=== PATIENT | female | born 1980 | race Caucasian/White ===

== ENCOUNTER 2016-11-04 07:41 | Inpatient (IN) | payer BC ==
[2016-11-04] MEDS ORDERED: Sodium Chloride 0.9% 10 ML Syringe FLUSH PRN (08:29)
[2016-11-04] MEDS ORDERED: Sodium Chloride 0.9% 2.5 ML Syringe FLUSH PRN (08:29)
[2016-11-04] MEDS ORDERED: Citric Acid/Sodium Citrate Solution 30 ML Cup PO SCH (08:30)
[2016-11-04] MEDS ORDERED: ceFAZolin 2 GM in Premix Bag 1 BAG IV ONE (08:34)
[2016-11-04] MEDS: Lactated Ringers 1,000 ML IV SCH ×2 (08:45→09:48)
[2016-11-04] MEDS ORDERED: Morphine PF 10 MG/10 ML SDV ONE (09:07)
[2016-11-04] MEDS ORDERED: Oxytocin/Lactated Ringers 30 UNIT/500 ML BAG ONE (09:33)
--- NOTE | 2016-11-04 09:42 | PCM.PREANE ---
Preanesthetic Assessment - Anesthesia/Transfusion/Family Hx Anesthesia History: Prior Anesthesia Without Reaction Family History of Anesthesia Reaction: No Transfusion History: No Prior Transfusion(s) - Review of Systems General: No Symptoms Pulmonary: No Symptoms Cardiovascular: No Symptoms Gastrointestinal: No symptoms Neurological: No Symptoms Other: Reports: None - Physical Assessment NPO Status Date: 11/03/16 Height: 1.68 m Weight: 97.522 kg ASA Class: 2 Mental Status: Alert & Oriented x3 Airway Class: Mallampati = 2 Dentition: Reports: Normal Dentition ROM/Head Extension: Full Lungs: Clear to auscultation, Normal respiratory effort Cardiovascular: Regular Rate, Regular Rhythm - Lab Values: Laboratory Last Values WBC 10.84 K/uL (4.0-11.0) 11/04/16 08:43 RBC 3.92 M/uL (4.30-5.90) L 11/04/16 08:43 Hgb 12.0 g/dL (12.0-16.0) 11/04/16 08:43 Hct 34.9 % (36.0-46.0) L 11/04/16 08:43 MCV 89.0 fL (80.0-98.0) 11/04/16 08:43 MCH 30.6 pg (27.0-32.0) 11/04/16 08:43 MCHC 34.4 g/dL (31.0-37.0) 11/04/16 08:43 RDW Std Deviation 43.5 fl (28.0-62.0) 11/04/16 08:43 RDW Coeff of Ebonie 14 % (11.0-15.0) 11/04/16 08:43 Plt Count 185 K/uL (150-400) 11/04/16 08:43 MPV 10.70 fL (7.40-12.00) 11/04/16 08:43 Nucleated RBC % 0.0 /100WBC 11/04/16 08:43 Nucleated RBCs # 0 K/uL 11/04/16 08:43 Membrane Rupture NEGATIVE 11/04/16 07:55 - Allergies Allergies/Adverse Reactions: Allergies Allergy/AdvReac Type Severity Reaction Status Date / Time avocado Allergy lips swell Verified 10/29/16 13:20 peach Allergy lips swell Verified 10/29/16 13:20 - Blood Blood Available: Yes - Anesthesia Plan Pre-Op Medication Ordered: Antacids - Acknowledgements Anesthesia Type Planned: Spinal Pt an Appropriate Candidate for the Planned Anesthesia: Yes Alternatives and Risks of Anesthesia Discussed w Pt/Guardian: Yes Pt/Guardian Understands and Agrees with Anesthesia Plan: Yes Additional Comments: C/S for macrosomia (estimated 10#) PreAnesthesia Questionnaire HEENT History: Reports: Other (See Below) Other HEENT History: wears glasses/contacts Gastrointestinal History: Reports: GERD SMALL [employer]ER History: Reports: - Past Surgical History Head Surgeries/Procedures: Reports: None HEENT Surgical History: Reports: Oral Surgery Other HEENT Surgeries/Procedures: wisdom teeth extraction Other GI Surgeries/Procedures: endoscopy - SUBSTANCE USE Smoking Status *Q: Never Smoker Recreational Drug Use History: No - HOME MEDS Home Medications: Home Meds Omeprazole Magnesium [Prilosec Otc] 1 tab PO DAILY 10/29/16 [History] Vit W-Ca,Fe,FA(<1 mg) [ Vitamins] 1 tab PO DAILY 10/29/16 [ History] - CURRENT (IN HOUSE) MEDS Current Meds: Current Medications Citric Acid/Sodium Citrate (Bicitra Solution) 30 ml PO .ONCE [facility] Lactated Ringer's (Ringers, Lactated) 1,000 mls @ 500 mls/hr IV .BOLUS [facility] Last Admin: 11/04/16 08:45 Dose: 999 mls/hr Sodium Chloride (Saline Flush) 10 ml FLUSH ASDIRECTED PRN PRN Reason: Keep Vein Open Sodium Chloride (Saline Flush) 2.5 ml FLUSH ASDIRECTED PRN PRN Reason: Keep Vein Open Discontinued Medications Cefazolin Sodium/Dextrose 2 gm (/ Premix) 50 mls @ 100 mls/hr IV ONETIME ONE Stop: 11/04/16 09:03 Oxytocin/Lactated Ringer's (Pitocin In Lr 30 Units/500 Ml) Confirm Administered Dose 30 unit in 500 mls @ as directed .ROUTE .STK-MED ONE Stop: 11/04/16 09:34 Morphine Sulfate (Duramorph Pf) Confirm Administered Dose 10 mg .ROUTE .STK-MED ONE Stop: 11/04/16 09:08
[2016-11-04] MEDS ORDERED: Acetaminophen/oxyCODONE 325-5 MG Tab PO PRN ×2 (10:25→10:51)
[2016-11-04] MEDS ORDERED: fentaNYL 100 MCG/2 ML SDV IVPUSH PRN (10:25)
[2016-11-04] MEDS ORDERED: Nalbuphine 10 MG/1 ML Vial IVPUSH PRN (10:25)
[2016-11-04] MEDS ORDERED: Octyl 2-Cyanoacrylate 1 Tube ONE (10:29)
[2016-11-04] MEDS ORDERED: ePHEDrine 50 MG/ML SDV ONE (10:34)
[2016-11-04] MEDS ORDERED: diphenhydrAMINE 50 MG/ML SDV IVPUSH PRN (10:51)
[2016-11-04] MEDS ORDERED: Simethicone 80 MG Tab.Chew PO PRN (10:51)
[2016-11-04] MEDS ORDERED: Ondansetron 4 MG/2 ML SDV IV PRN (10:51)
[2016-11-04] MEDS ORDERED: Bisacodyl 10 MG Supp RECTAL PRN (10:51)
[2016-11-04] MEDS ORDERED: Lanolin 100% Cream 7 GM Tube TOP PRN (10:51)
[2016-11-04] MEDS ORDERED: Aluminum Hydroxide/Magnesium Hydroxide/Simethicone Susp 30 ML Cup PO PRN (10:51)
[2016-11-04] MEDS ORDERED: Lactated Ringers 1,000 ML IV SCH (11:00)
--- NOTE | 2016-11-04 11:07 | PCM.POSTAN ---
POST ANESTHESIA ASSESSMENT - MENTAL STATUS Mental Status: alert, oriented - RESPIRATORY Respiratory Status: respiratory rate WNL, airway patent, O2 saturation stable - CARDIOVASCULAR CV Status: pulse rate WNL, blood pressure stable - GASTROINTESTINAL GI Status: no symptoms - PAIN Pain Score: 0 - POST OP HYDRATION Hydration Status: adequate & stable
--- NOTE | 2016-11-04 11:07 | PCM.OPNOTE ---
- General Post-Op/Procedure Note Date of Surgery/Procedure: 11/04/16 Operative Procedure(s): Primary LTCS Findings: Term male APGARs 8, 9 weight 4270gm. Delivery intact placenta with 3V cord. Normal appearing pelvis. Pre Op Diagnosis: 39 week IUP. Macrosomia Post-Op Diagnosis: same Anesthesia Technique: Spinal Primary Surgeon: Ayaka Leon Fluid Replacement, Intraop: 1,600 EBL in mLs: 600 Condition: Good Free Text/Narrative:: Dictation [id number]
[2016-11-04] MEDS: Ketorolac 30 MG/ML SDV IVPUSH SCH ×3 (11:19→23:14)
--- NOTE | 2016-11-04 14:49 | OR ---
SURGEON: Ayaka Leon M.D. DATE OF PROCEDURE: 11/04/2016 PREOPERATIVE DIAGNOSES: 1. A 39-week intrauterine . 2. macrosomia. 3. Spontaneous rupture of membranes. POSTOPERATIVE DIAGNOSES: 1. A 39-week intrauterine . 2. macrosomia. 3. Spontaneous rupture of membranes. PROCEDURE: Primary low transverse section. ESTIMATED BLOOD LOSS: 600 mL. ANESTHESIA: Spinal. FLUIDS: 1500 mL crystalloid. COMPLICATIONS: None. FINDINGS: Term male, score 8 at 1 minute, 9 at 5 minute. Weight of 4270 g. Intact placenta, 3-vessel cord. Normal appearing pelvis. DISPOSITION: The patient to PACU and to nursery, stable. PROCEDURE IN DETAIL: Silvina is a 36-year-old, G3, P2-0-0-2, at 39 weeks' gestational age, who presents today for originally had been for scheduled elective due to suspected macrosomia. However, she had leakage of fluid this morning and was found to have spontaneous rupture of membranes. Therefore, she was admitted, routine labs drawn, and IV hydration was initiated. She has elected to do a primary delivery due to the suspected macrosomia. Risks of have been discussed with her including infection, bleeding, possible trauma surrounding bowel, bladder, ureter, in case of excessive blood loss, need for blood transfusion, rare lifesaving circumstances, need for hysterectomy, risk of anesthesia, risk for thromboembolic event, and proper consent was obtained. The patient was then taken to the operating room, where she underwent spinal anesthetic. She was placed in a supine position with leftward tilt. SCDs to lower extremities. Munoz to gravity. She was prepped and draped in usual sterile fashion. Received Ancef prophylactically. Time-out was performed. Anesthesia was tested and found to be adequate. A Pfannenstiel incision was now created, carried down level of the rectus fascia, which was incised in midline, lateralized, incised sharply and bluntly. The superior aspect of fascia was tented upward, dissected sharply and bluntly from underlying muscle. In a similar aspect was performed with the inferior aspect of the fascia. Rectus muscle in midline. The peritoneum was tented upward and entered sharply, and lateralized bluntly. Uterine position and position gently palpated. The uterovesical reflection was visualized. Bladder flap was created sharply and bluntly. Bladder was mobilized away from lower uterine segment. Low transverse hysterotomy was now performed. Uterine cavity was entered with blunt end of scalpel. A small amount of clear fluid did return. The hysterotomy was now lateralized bluntly. The 's head was flexed, delivered from the pelvis. The infant's head was delivered followed by anterior shoulder, posterior made by without difficulty. The 's oropharynx and nares bulb suctioned. Cord clamped x2 and cut and handed off to awaiting nursing staff. Cord arterial, cord venous, cord blood samples obtained. The placenta was now delivered. Uterine cavity was cleared of all clot and debris. Hysterotomy was repaired using 0 Vicryl in continuous running locked fashion followed by re- imbricating layer. The areas of oozing and the lateral edges on either side were imbricated with [id number] suture. Hemostasis was thereafter evident. The posterior aspect of the uterus inspected, no defects hematoma found to be forming. The region was well irrigated, suction dried. Uterus was returned to the abdominal cavity. Colonic gutters were cleared of all clot and debris, well irrigated, suction dried. The hysterotomy was once again inspected, found to be hemostatic. Self-retaining retractor now removed. Bladder blade was placed. Hysterotomy was again inspected, found to be hemostatic. The rectus muscles were reapproximated using 0 Vicryl in an inverted mattress suture technique. Anterior aspect of the muscle, posterior aspect of fascia were closely inspected. Any areas of oozing were cauterized. The rectus fascia was reapproximated using 0 Vicryl in continuous running fashion beginning laterally on either side meeting in the midline. Subcutaneous tissues were well irrigated, suction dried. Any oozing were cauterized. Skin edges reapproximated using 3-0 Vicryl in a Tony needle and then reinforced with Dermabond. Uterus remained firm. Sponge needle counts correct x2. The patient tolerated the procedure well. She will go to PACU in stable condition and to nursery. ELTON / ANDRAE /[id number]
--- NOTE | 2016-11-04 21:04 | PCM48HPAN ---
Post Anesthesia Note - EVALUATION WITHIN 48HRS OF ANESTHETIC Vital Signs in Normal Range: Yes Patient Participated in Evaluation: Yes Respiratory Function Stable: Yes Airway Patent: Yes Cardiovascular Function Stable: Yes Hydration Status Stable: Yes Pain Control Satisfactory: Yes Nausea and Vomiting Control Satisfactory: Yes Mental Status Recovered: Yes
[2016-11-04] MEDS: Docusate Sodium 100 MG Cap PO SCH (22:12)
--- NOTE | 2016-11-05 04:59 | PCM.PNPP ---
- General Info Date of Service: 11/05/16 Functional Status: Reports: pain controlled, tolerating diet, ambulating, urinating - Review of Systems General: Denies: Fever, Weakness Cardiovascular: Denies: Chest Pain, Palpitations, Lightheadedness Gastrointestinal: Denies: Nausea, Vomiting Genitourinary: Denies: flank pain Musculoskeletal: Reports: no symptoms Psychiatric: Reports: no symptoms - General Info Date of Service: 11/05/16 - Patient Data Vital Signs - most recent: Last Vital Signs Temp 36.3 C 11/05/16 00:00 Pulse 96 11/05/16 00:00 Resp 16 11/05/16 00:00 BP 113/72 11/05/16 00:00 Pulse Ox 100 11/05/16 00:00 Weight - most recent: 97.522 kg I&O - last 24 hours: Intake & Output 11/04/16 11/04/16 11/05/16 14:59 22:59 06:59 Intake Total 4220 700 Output Total 100 350 850 Balance 4120 350 -850 Lab Results - last 24 hrs: Laboratory Results - last 24 hr 11/04/16 11/04/16 11/04/16 Range/Units 07:55 08:43 08:43 WBC 10.84 (4.0-11.0) K/uL RBC 3.92 L (4.30-5.90) M/uL Hgb 12.0 (12.0-16.0) g/dL Hct 34.9 L (36.0-46.0) % MCV 89.0 (80.0-98.0) fL MCH 30.6 (27.0-32.0) pg MCHC 34.4 (31.0-37.0) g/dL RDW Std Deviation 43.5 (28.0-62.0) fl RDW Coeff of Ebonie 14 (11.0-15.0) % Plt Count 185 (150-400) K/uL MPV 10.70 (7.40-12.00) fL Nucleated RBC % 0.0 /100WBC Nucleated RBCs # 0 K/uL Membrane Rupture NEGATIVE Blood Type A POSITIVE Antibody Screen NEGATIVE Med Orders - Current: Current Medications Al Hydroxide/Mg Hydroxide (Mag-Al Plus) 30 ml PO Q8H PRN PRN Reason: Heartburn Bisacodyl (Dulcolax) 10 mg RECTAL .ONCE PRN PRN Reason: Constipation Citric Acid/Sodium Citrate (Bicitra Solution) 30 ml PO .ONCE [facility] Last Admin: 11/04/16 09:48 Dose: 30 ml Diphenhydramine HCl (Benadryl) 25 mg IVPUSH Q6H PRN PRN Reason: Itching or Nausea Docusate Sodium (Colace) 100 mg PO BID [facility] Last Admin: 11/04/16 22:12 Dose: 100 mg Emollient Ointment (Lansinoh Hpa) 0 gm TOP ASDIRECTED PRN PRN Reason: Sore Nipples Fentanyl (Sublimaze) 50 mcg IVPUSH Q5M PRN PRN Reason: Pain (severe 7-10) Stop: 11/05/16 10:26 Lactated Ringer's (Ringers, Lactated) 1,000 mls @ 500 mls/hr IV .BOLUS [facility] Last Admin: 11/04/16 09:48 Dose: 999 mls/hr Lactated Ringer's (Ringers, Lactated) 1,000 mls @ 125 mls/hr IV ASDIRECTED [facility] Ibuprofen (Motrin) 800 mg PO Q8H PRN PRN Reason: mild pain or fever Ketorolac Tromethamine (Toradol) 30 mg IVPUSH Q6H [facility] Stop: 11/05/16 11:01 Last Admin: 11/04/16 23:14 Dose: 30 mg Nalbuphine HCl (Nubain) 5 mg IVPUSH Q3H PRN PRN Reason: Pruritis Stop: 11/05/16 10:26 Ondansetron HCl (Zofran) 4 mg IV Q4H PRN PRN Reason: Nausea/Vomiting Oxycodone/Acetaminophen (Percocet 325-5 Mg) 2 tab PO ONETIME PRN PRN Reason: Pain (moderate 4-6) Oxycodone/Acetaminophen (Percocet 325-5 Mg) 1 tab PO Q4H PRN PRN Reason: Pain (moderate 4-6) Oxycodone/Acetaminophen (Percocet 325-5 Mg) 2 tab PO Q4H PRN PRN Reason: Pain (moderate 4-6) Simethicone (Simethicone) 80 mg PO Q4H PRN PRN Reason: Gas Sodium Chloride (Saline Flush) 10 ml FLUSH ASDIRECTED PRN PRN Reason: Keep Vein Open Sodium Chloride (Saline Flush) 2.5 ml FLUSH ASDIRECTED PRN PRN Reason: Keep Vein Open Discontinued Medications Ephedrine Sulfate (Ephedrine Sulfate) Confirm Administered Dose 50 mg .ROUTE .STK-MED ONE Stop: 11/04/16 10:35 Cefazolin Sodium/Dextrose 2 gm (/ Premix) 50 mls @ 100 mls/hr IV ONETIME ONE Stop: 11/04/16 09:03 Oxytocin/Lactated Ringer's (Pitocin In Lr 30 Units/500 Ml) Confirm Administered Dose 30 unit in 500 mls @ as directed .ROUTE .STK-MED ONE Stop: 11/04/16 09:34 Last Admin: 11/04/16 23:48 Dose: Not Given Morphine Sulfate (Duramorph Pf) Confirm Administered Dose 10 mg .ROUTE .STK-MED ONE Stop: 11/04/16 09:08 Octyl Cyanoacrylate (Dermabond Advance) Confirm Administered Dose 1 applic .ROUTE .STK-MED ONE Stop: 11/04/16 10:30 - Interaction Support Person: - Recovery Exam Fundal Tone: Firm Fundal Level: 1 Fingerbreadths Below Umbilicus Fundal Placement: Midline Lochia Amount: Small Lochia Color: Rubra/Red Perineum Description: Intact, Minimal Bruising/Swelling Episiotomy/Laceration: None Bladder Status: Indwelling Catheter in Place Urinary Elimination: Indwelling Catheter - Exam General: alert, oriented Lungs: Normal respiratory effort Cardiovascular: Regular Rate, Regular Rhythm Abdomen: bowel sounds present, soft. No: CVA tenderness Extremities: no calf tenderness Skin: warm, dry, intact Wound/Incisions: dressing dry and intact Psy/Mental Status: alert, normal affect - Problem List & Annotations (1) delivery delivered SNOMED Code(s): 611569289 Code(s): O82 - ENCOUNTER FOR DELIVERY WITHOUT INDICATION Status: Acute Current Visit: Yes - Problem List Review Problem List Initiated/Reviewed/Updated: Yes - My Orders Last 24 Hours: My Active Orders 11/04/16 07:57 Patient Status [ADT] Routine Up ad Karla [RC] ASDIRECTED Vital Signs [RC] PER UNIT ROUTINE Resuscitation Status Routine 11/04/16 08:29 Patient Status [ADT] Routine Up ad Karla [RC] ASDIRECTED Vital Signs [RC] PER UNIT ROUTINE Sodium Chloride 0.9% [Saline Flush] 10 ml FLUSH ASDIRECTED PRN Sodium Chloride 0.9% [Saline Flush] 2.5 ml FLUSH ASDIRECTED PRN Peripheral IV Insertion Adult [OM.PC] Routine Schedule Procedure [COMM] Per Unit Routine 11/04/16 08:30 Notify Provider Vital Signs [RC] PRN Citric Acid/Sodium Citrate [Bicitra Solution] 30 ml PO .ONCE Lactated Ringers [Ringers, Lactated] 1,000 ml IV .BOLUS 11/04/16 10:51 Ambulate [RC] PER UNIT ROUTINE Communication Order [RC] PER UNIT ROUTINE Communication Order [RC] PER UNIT ROUTINE Communication Order [RC] Per Unit Routine May Shower [RC] ASDIRECTED Notify Provider Intake and Out [RC] ASDIRECTED Notify Provider Vital Signs [RC] ASDIRECTED RT Incentive Spirometry [RC] Q2HWA Vital Signs [RC] PER UNIT ROUTINE Acetaminophen/oxyCODONE [Percocet 325-5 MG] 1 tab PO Q4H PRN Acetaminophen/oxyCODONE [Percocet 325-5 MG] 2 tab PO Q4H PRN Alum Hydrox/Mag Hydrox/Simeth [Mag-Al Plus] 30 ml PO Q8H PRN Bisacodyl [Dulcolax] 10 mg RECTAL .ONCE PRN Lanolin [Lansinoh HPA] See Dose Instructions TOP ASDIRECTED PRN Ondansetron [Zofran] 4 mg IV Q4H PRN Simethicone 80 mg PO Q4H PRN diphenhydrAMINE [Benadryl] 25 mg IVPUSH Q6H PRN Abdominal Binder [OM.PC] Routine Assess Lochia [WOMSER] Per Unit Routine Assess Uterine Involution [WOMSER] Per Unit Routine Breast Pump [WOMSER] Per Unit Routine Heat Therapy [OM.PC] Routine Ice Therapy [OM.PC] Routine Peripheral IV Discontinue [OM.PC] Routine Sequential Compression Device [OM.PC] Per Unit Routine 11/04/16 10:52 Antiembolic Devices [RC] PER UNIT ROUTINE 11/04/16 11:00 Ketorolac [Toradol] 30 mg IVPUSH Q6H Lactated Ringers [Ringers, Lactated] 1,000 ml IV ASDIRECTED 11/04/16 17:00 Ibuprofen [Motrin] 800 mg PO Q8H PRN 11/04/16 21:00 Docusate Sodium [Colace] 100 mg PO BID 11/04/16 Lunch Clear Liquid Diet [DIET] 11/05/16 05:11 HEMOGLOBIN/HEMATOCRIT,HH [HEME] Timed - Assessment Assessment:: POD 1 status post Primary LTCS for macrosomia - Plan Plan:: Continue postoperative cares. Ambulate halls today. Remove hill, may shower later.
[2016-11-05] MEDS: Ketorolac 30 MG/ML SDV IVPUSH SCH ×2 (05:17→10:44)
[2016-11-05] MEDS: Docusate Sodium 100 MG Cap PO SCH ×2 (10:31→21:56)
[2016-11-05] MEDS: Ibuprofen 800 MG Tab PO PRN (10:52)
[2016-11-05] MEDS: Acetaminophen/oxyCODONE 325-5 MG Tab PO PRN ×2 (16:01→21:58)
[2016-11-06] MEDS: Ibuprofen 800 MG Tab PO PRN ×2 (00:32→07:59)
--- NOTE | 2016-11-06 07:26 | PCM.PNPP ---
- General Info Date of Service: 11/06/16 Functional Status: Reports: pain controlled, tolerating diet, ambulating, urinating - Review of Systems General: Reports: No Symptoms HEENT: Reports: no symptoms Pulmonary: Reports: no symptoms Cardiovascular: Reports: No Symptoms Gastrointestinal: Reports: No symptoms Genitourinary: Reports: no symptoms Musculoskeletal: Reports: no symptoms Skin: Reports: no symptoms Neurological: Reports: No Symptoms Psychiatric: Reports: no symptoms - Patient Data Vital Signs - most recent: Last Vital Signs Temp 36.0 C 11/06/16 05:09 Pulse 77 11/06/16 05:09 Resp 16 11/06/16 05:09 BP 112/70 11/06/16 05:09 Pulse Ox 95 11/06/16 05:09 Weight - most recent: 97.522 kg Med Orders - Current: Current Medications Al Hydroxide/Mg Hydroxide (Mag-Al Plus) 30 ml PO Q8H PRN PRN Reason: Heartburn Bisacodyl (Dulcolax) 10 mg RECTAL .ONCE PRN PRN Reason: Constipation Citric Acid/Sodium Citrate (Bicitra Solution) 30 ml PO .ONCE [facility] Last Admin: 11/04/16 09:48 Dose: 30 ml Diphenhydramine HCl (Benadryl) 25 mg IVPUSH Q6H PRN PRN Reason: Itching or Nausea Docusate Sodium (Colace) 100 mg PO BID [facility] Last Admin: 11/05/16 21:56 Dose: 100 mg Emollient Ointment (Lansinoh Hpa) 0 gm TOP ASDIRECTED PRN PRN Reason: Sore Nipples Last Admin: 11/05/16 10:31 Dose: 1 applic Lactated Ringer's (Ringers, Lactated) 1,000 mls @ 500 mls/hr IV .BOLUS [facility] Last Admin: 11/04/16 09:48 Dose: 999 mls/hr Lactated Ringer's (Ringers, Lactated) 1,000 mls @ 125 mls/hr IV ASDIRECTED [facility] Ibuprofen (Motrin) 800 mg PO Q8H PRN PRN Reason: mild pain or fever Last Admin: 11/06/16 00:32 Dose: 800 mg Ondansetron HCl (Zofran) 4 mg IV Q4H PRN PRN Reason: Nausea/Vomiting Oxycodone/Acetaminophen (Percocet 325-5 Mg) 2 tab PO ONETIME PRN PRN Reason: Pain (moderate 4-6) Oxycodone/Acetaminophen (Percocet 325-5 Mg) 1 tab PO Q4H PRN PRN Reason: Pain (moderate 4-6) Last Admin: 11/05/16 21:58 Dose: 1 tab Oxycodone/Acetaminophen (Percocet 325-5 Mg) 2 tab PO Q4H PRN PRN Reason: Pain (moderate 4-6) Simethicone (Simethicone) 80 mg PO Q4H PRN PRN Reason: Gas Sodium Chloride (Saline Flush) 10 ml FLUSH ASDIRECTED PRN PRN Reason: Keep Vein Open Sodium Chloride (Saline Flush) 2.5 ml FLUSH ASDIRECTED PRN PRN Reason: Keep Vein Open Discontinued Medications Ephedrine Sulfate (Ephedrine Sulfate) Confirm Administered Dose 50 mg .ROUTE .STK-MED ONE Stop: 11/04/16 10:35 Fentanyl (Sublimaze) 50 mcg IVPUSH Q5M PRN PRN Reason: Pain (severe 7-10) Stop: 11/05/16 10:26 Cefazolin Sodium/Dextrose 2 gm (/ Premix) 50 mls @ 100 mls/hr IV ONETIME ONE Stop: 11/04/16 09:03 Oxytocin/Lactated Ringer's (Pitocin In Lr 30 Units/500 Ml) Confirm Administered Dose 30 unit in 500 mls @ as directed .ROUTE .STK-MED ONE Stop: 11/04/16 09:34 Last Admin: 11/04/16 23:48 Dose: Not Given Ketorolac Tromethamine (Toradol) 30 mg IVPUSH Q6H [facility] Stop: 11/05/16 11:01 Last Admin: 11/05/16 10:44 Dose: 30 mg Morphine Sulfate (Duramorph Pf) Confirm Administered Dose 10 mg .ROUTE .STK-MED ONE Stop: 11/04/16 09:08 Nalbuphine HCl (Nubain) 5 mg IVPUSH Q3H PRN PRN Reason: Pruritis Stop: 11/05/16 10:26 Octyl Cyanoacrylate (Dermabond Advance) Confirm Administered Dose 1 applic .ROUTE .STK-MED ONE Stop: 11/04/16 10:30 - Interaction Infant Disposition, : [place] at Bedside Interaction: Holding Feeding: Breastfed Infant; Nursed Well Support Person: - Recovery Exam Fundal Tone: Firm Fundal Level: 1 Fingerbreadths Below Umbilicus Fundal Placement: Midline Lochia Amount: Scant Lochia Color: Rubra/Red Perineum Description: Intact, Minimal Bruising/Swelling Episiotomy/Laceration: None Bladder Status: Voiding Urinary Elimination: Voided - Exam General: alert, oriented HEENT: Pupils equal Neck: supple Lungs: Clear to auscultation, Normal respiratory effort Cardiovascular: Regular Rate, Regular Rhythm Abdomen: bowel sounds present, soft, no tenderness, no distension Extremities: no edema Skin: warm, dry, intact Wound/Incisions: healing well Neurological: no new focal deficit Psy/Mental Status: alert, normal affect, normal mood - Problem List & Annotations (1) delivery delivered SNOMED Code(s): 355010541 Code(s): O82 - ENCOUNTER FOR DELIVERY WITHOUT INDICATION Status: Acute Current Visit: Yes - Problem List Review Problem List Initiated/Reviewed/Updated: Yes - Assessment Assessment:: POD 2 status post Primary LTCS for macrosomia stable well, minimal lochia and pain well controlled, - Plan Plan:: Dismiss to home, discharge instructions reviewed, continue vitamins while .
[2016-11-06] MEDS: Acetaminophen/oxyCODONE 325-5 MG Tab PO PRN (07:58)
[2016-11-06] MEDS: Docusate Sodium 100 MG Cap PO SCH (11:28)
[2016-11-06 14:36] VITALS: BP 112/70
== END 2016-11-06 13:05 | disposition home or self-care (01) | DRG 540 ==
LOC: MW.OB 07:41
PROVIDERS: ADMIT Obstetrics & Gynecology; ATTEND Obstetrics & Gynecology
PROC: 10D00Z1 Extraction of Products of Conception, Low, Open Approach (ICD-10-PCS; principal; 2016-11-04)
DX: O36.63X0 Maternal care for excessive fetal growth, third trimester, not applicable or unspecified (principal); Z3A.39 39 weeks gestation of pregnancy; Z37.0 Single live birth; O42.02 Full-term premature rupture of membranes, onset of labor within 24 hours of rupture
CPT/HCPCS: 01961; 36415; 51703; 59025; 84112; 85014; 85018; 85027; 86850; 86900; 86901; A9270-GY; J0690; J1885; J2270; J7120

== ENCOUNTER 2017-09-01 15:06 | Emergency (ER) | payer BC ==
[2017-09-01] MEDS ORDERED: Sodium Chloride 0.9% 1,000 ML IV ONE (15:09)
[2017-09-01] MEDS ORDERED: Alum Hydrox/Mag Hydrox/Simeth 15 ML, Metoclopramide 5 MG, Lidocaine 2% 5 ML PO ONE ×3 (15:09)
[2017-09-01] MEDS ORDERED: Ondansetron 4 MG/2 ML SDV IVPUSH ONE (15:09)
--- NOTE | 2017-09-01 15:13 | EDM.PDOC ---
ED HPI GENERAL MEDICAL PROBLEM - General Chief Complaint: Chest Pain Stated Complaint: CHEST PAIN Time Seen by Provider: 09/01/17 15:08 Source of Information: Reports: Patient History Limitations: Reports: No Limitations - History of Present Illness INITIAL COMMENTS - FREE TEXT/NARRATIVE: HISTORY AND PHYSICAL: History of present illness: Patient is a 37-year-old female who presents to the emergency room today with complaints of midsternal chest pain. She states this pain is sharp and has progressively increased in intensity. The pain starting she was in coffee. Does have nausea and some anxiety related to these symptoms. Reports she did have a similar episode of this in March 2017, which she was told it was GERD. At that time she did do a 2 month trial of Prilosec which seemed to resolve her pain. Denies any fever, chills, shortness of breath, abdominal pain, vomiting, diarrhea or constipation. Review of systems: As per history of present illness and below otherwise all systems reviewed and negative. Past medical history: As per history of present illness and as reviewed below otherwise noncontributory. Surgical history: As per history of present illness and as reviewed below otherwise noncontributory. Social history: No reported history of drug or alcohol abuse. Family history: As per history of present illness and as reviewed below otherwise noncontributory. Physical exam: General: Well-developed and well-nourished 37-year-old female. Alert and oriented. Nontoxic appearing and in no acute distress HEENT: Atraumatic, normocephalic, pupils equal and reactive bilaterally, negative for conjunctival pallor or scleral icterus, mucous membranes moist, throat clear, neck supple, nontender, trachea midline. No drooling or trismus noted. No meningeal signs Lungs: Clear to auscultation, breath sounds equal bilaterally, chest nontender. Heart: S1S2, regular rate and rhythm without overt murmur Abdomen: Soft, nondistended, nontender. Negative for masses or hepatosplenomegaly. Negative for costovertebral tenderness. Pelvis: Stable nontender. Genitourinary: Deferred. Rectal: Deferred. Skin: Intact, warm, dry. No lesions or rashes noted. Extremities: Atraumatic, negative for cords or calf pain. Neurovascular unremarkable. Neuro: Awake, alert, oriented. Cranial nerves II through XII unremarkable. Cerebellum unremarkable. Motor and sensory unremarkable throughout. Exam nonfocal. Notes: Lab work is unremarkable. EKG shows a normal sinus rhythm, no acute findings. Abdominal ultrasound shows no acute findings. Chest x-ray shows no infiltrate or pneumonia. This information was shared with the patient. Diagnostics: CBC, CMP, troponin, EKG, chest x-ray, H. pylori Therapeutics: IV fluid, Zofran, GI cocktail Impression: Chest pain, nonspecific Plan: 1. Today's labs, EKG, ultrasound and x-ray were within normal limits. 2. Please follow-up with your primary care provider in the next 1-2 days. Return to the ED as needed and as discussed. Definitive disposition and diagnosis as appropriate pending reevaluation and review of above. 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 ED EXAM, GENERAL - Physical Exam Exam: See Below (See dictation) Course - Vital Signs Last Recorded V/S: Last Vital Signs Temp 97.2 F 09/01/17 15:13 Pulse 100 09/01/17 15:13 Resp 22 H 09/01/17 15:13 BP 154/93 H 09/01/17 15:13 Pulse Ox 100 09/01/17 15:13 - Orders/Labs/Meds Orders: Active Orders 24 hr Category Date Time Status EKG Documentation Completion [RC] STAT Care 09/01/17 15:09 Active Labs: Laboratory Tests 09/01/17 09/01/17 09/01/17 Range/Units 15:18 15:18 15:18 WBC 9.08 (4.0-11.0) K/uL RBC 4.75 (4.30-5.90) M/uL Hgb 14.2 (12.0-16.0) g/dL Hct 40.9 (36.0-46.0) % MCV 86.1 (80.0-98.0) fL MCH 29.9 (27.0-32.0) pg MCHC 34.7 (31.0-37.0) g/dL RDW Std Deviation 41.2 (28.0-62.0) fl RDW Coeff of Ebonie 13 (11.0-15.0) % Plt Count 239 (150-400) K/uL MPV 10.30 (7.40-12.00) fL Neut % (Auto) 60.0 (48.0-80.0) % Lymph % (Auto) 33.1 (16.0-40.0) % Carver % (Auto) 4.8 (0.0-15.0) % Eos % (Auto) 1.3 (0.0-7.0) % Baso % (Auto) 0.8 (0.0-1.5) % Neut # (Auto) 5.4 (1.4-5.7) K/uL Lymph # (Auto) 3.0 H (0.6-2.4) K/uL Carver # (Auto) 0.4 (0.0-0.8) K/uL Eos # (Auto) 0.1 (0.0-0.7) K/uL Baso # (Auto) 0.1 (0.0-0.1) K/uL Nucleated RBC % 0.0 /100WBC Nucleated RBCs # 0 K/uL Sodium 139 (136-145) mmol/L Potassium 3.2 L (3.5-5.1) mmol/L Chloride 103 (98-107) mmol/L Carbon Dioxide 23.3 (21.0-32.0) mmol/L BUN 9 (7.0-18.0) mg/dL Creatinine 0.9 (0.6-1.0) mg/dL Est Cr Clr Drug Dosing 81.67 mL/min Estimated GFR (MDRD) > 60.0 ml/min Glucose 87 (74-106) mg/dL Calcium 9.2 (8.5-10.1) mg/dL Total Bilirubin 0.4 (0.2-1.0) mg/dL AST 27 (15-37) IU/L ALT 20 (14-63) IU/L Alkaline Phosphatase 76 (46-116) U/L Troponin I < 0.050 (0.000-0.056) ng/mL Total Protein 7.7 (6.4-8.2) g/dL Albumin 3.7 (3.4-5.0) g/dL Globulin 4.0 H (2.0-3.5) g/dL Albumin/Globulin Ratio 0.9 L (1.3-2.8) H. pylori IgG Antibody NEGATIVE (NEG) Meds: Medications Discontinued Medications Generic Name Dose Route Start Last Admin Trade Name Freq PRN Reason Stop Dose Admin Al Hydroxide/Mg Hydroxide 15 0 ml 09/01/17 15:09 09/01/17 15:40 ml/ Metoclopramide HCl 5 mg/ PO 09/01/17 15:10 1 each Lidocaine HCl 5 ml ONETIME ONE Administration Sodium Chloride 1,000 mls @ 999 mls/hr 09/01/17 15:09 09/01/17 15:24 Normal Saline IV 09/01/17 16:09 999 mls/hr STAT ONE Administration Ketorolac Tromethamine 30 mg 09/01/17 15:22 09/01/17 15:46 Toradol IVPUSH 09/01/17 15:23 30 mg ONETIME ONE Administration Ondansetron HCl 4 mg 09/01/17 15:09 09/01/17 15:40 Zofran IVPUSH 09/01/17 15:10 4 mg ONETIME ONE Administration Departure - Departure Time of Disposition: 16:14 Disposition: Home, Self-Care 01 Clinical Impression: Nonspecific chest pain Instructions: Nonspecific Chest Pain, [id number] Referrals: PCP,None [Primary Care Provider] - Forms: ED Department Discharge Additional Instructions: The following information is given to patients seen in the emergency department who are being discharged to home. This information is to outline your options for follow-up care. We provide all patients seen in our emergency department with a follow-up referral. The need for follow-up, as well as the timing and circumstances, are variable depending upon the specifics of your emergency department visit. If you don't have a primary care physician on staff, we will provide you with a referral. We always advise you to contact your personal physician following an emergency department visit to inform them of the circumstance of the visit and for follow-up with them and/or the need for any referrals to a consulting specialist. The emergency department will also refer you to a specialist when appropriate. This referral assures that you have the opportunity for follow-up care with a specialist. All of these measure are taken in an effort to provide you with optimal care, which includes your follow-up. Under all circumstances we always encourage you to contact your private physician who remains a resource for coordinating your care. When calling for follow-up care, please make the office aware that this follow-up is from your recent emergency room visit. If for any reason you are refused follow-up, please contact the [facility] Emergency Department at and asked to speak to the emergency department charge nurse. [facility] [address] [place] [address] 1. Today's labs, EKG, ultrasound and x-ray were within normal limits. 2. Please follow-up with your primary care provider in the next 1-2 days. Return to the ED as needed and as discussed. - My Orders Last 24 Hours: My Active Orders 09/01/17 15:09 EKG Documentation Completion [RC] STAT - Assessment/Plan Last 24 Hours: My Active Orders 09/01/17 15:09 EKG Documentation Completion [RC] STAT
[2017-09-01 15:16] VITALS: BP 154/93
[2017-09-01] MEDS ORDERED: Ketorolac 30 MG/ML SDV IVPUSH ONE (15:22)
--- NOTE | 2017-09-01 15:45 | CR ---
EXAMINATION: Portable chest radiograph. HISTORY: Chest pain. Comparison: 09/25/2011 FINDINGS: The trachea is midline. The cardiomediastinal silhouette is within normal limits. No pulmonary infilt rates, effusions or pneumothorax. Osseous structures appear unremarkable. IMPRESSION: No acute cardiopulmonary process.
--- NOTE | 2017-09-01 16:04 | US ---
EXAMINATION: Right upper quadrant ultrasound HISTORY: Pain COMPARISON: None TECHNIQUE: Grayscale and color Doppler images obtained of the right upper quadrant FINDINGS: The visualized pancreas appears normal. The liver is normal in contour and echotexture with out a focal hepatic mass. The gallbladder wall thickness is normal however the gallbladder is decompr essed. No significant pericholecystic fluid, no shadowing gallstones. The common bile duct measures 4 mm. The right kidney measures 10.4 cm is [id number] without evidence of hydronephrosis. Negative s onographic Alanis sign. IMPRESSION: 1. Grossly unremarkable right upper quadrant ultrasound.
[2017-09-01 16:10] LABS: CHLORIDE,CL 103 mmol/L (98-107); SODIUM,NA 139 mmol/L (136-145)
== END 2017-09-01 16:23 | disposition home or self-care (01) ==
LOC: MW.ED 15:06
DX: R07.9 Chest pain, unspecified (principal); Z91.018 Allergy to other foods; Z79.899 Other long term (current) drug therapy
CPT/HCPCS: 36415; 71045; 76705; 80053; 84484; 85025; 86677; 96361; 96374; 96375; 99285; A9270; J1885; J2405; J7040; 93005; 99284

== ENCOUNTER 2017-12-22 09:24 | Day surgery (SDC) | payer BC ==
[~2017-12-22 09:24] MED LIST: Lactated Ringers 1,000 ML IV SCH; Sodium Chloride 0.9% 10 ML Syringe FLUSH PRN; Sodium Chloride 0.9% 2.5 ML Syringe FLUSH PRN
--- NOTE | 2017-12-22 10:57 | PCM.PREANE ---
Preanesthetic Assessment - Procedure Proposed Procedure: EGD - Anesthesia/Transfusion/Family Hx Anesthesia History: Prior Anesthesia Without Reaction Family History of Anesthesia Reaction: No Transfusion History: No Prior Transfusion(s) Intubation History: Unknown - Review of Systems General: Other (suggestion of biliary dyskensia) Pulmonary: Other Gastrointestinal: Abdominal Pain, Other Neurological: No Symptoms Other: Reports: None - Physical Assessment NPO Status Date: 12/21/17 NPO Status Time: 23:07 O2 Sat by Pulse Oximetry: 96 Respiratory Rate: 16 Vital Signs: Last Vital Signs Temp 210.2 F H 12/22/17 10:04 Pulse 79 12/22/17 10:04 Resp 16 12/22/17 10:04 BP 121/73 12/22/17 10:04 Pulse Ox 96 12/22/17 10:04 Height: 5 ft 6 in Weight: 183 lb ASA Class: 2 Mental Status: Alert & Oriented x3 Airway Class: Mallampati = 1 Dentition: Reports: Normal Dentition Thyro-Mental Finger Breadths: 3 Mouth Opening Finger Breadths: 3 ROM/Head Extension: Full Lungs: Clear to Auscultation, Normal Respiratory Effort Cardiovascular: Regular Rate, Regular Rhythm, No Murmurs Other: Wears and needs glasses for sight - Lab Values: Laboratory Last Values Urine HCG, Qual NEGATIVE (NEGATIVE) 12/22/17 09:40 - Allergies Allergies/Adverse Reactions: Allergies Allergy/AdvReac Type Severity Reaction Status Date / Time avocado Allergy lips swell Verified 12/16/17 12:55 peach Allergy lips swell Verified 12/16/17 12:55 - Blood Blood Available: No Product(s) Available: None - Anesthesia Plan Pre-Op Medication Ordered: None - Acknowledgements Anesthesia Type Planned: MAC Pt an Appropriate Candidate for the Planned Anesthesia: Yes Alternatives and Risks of Anesthesia Discussed w Pt/Guardian: Yes Pt/Guardian Understands and Agrees with Anesthesia Plan: Yes PreAnesthesia Questionnaire HEENT History: Reports: Other (See Below) Other HEENT History: wears glasses/contacts, has bottom permanent retainer Gastrointestinal History: Reports: GERD Genitourinary History: Reports: None 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: - Past Surgical History Head Surgeries/Procedures: Reports: None HEENT Surgical History: Reports: Oral Surgery Other HEENT Surgeries/Procedures: wisdom teeth extraction GI Surgical History: Reports: EGD Female Surgical History: Reports: Section - SUBSTANCE USE Smoking Status *Q: Never Smoker Recreational Drug Use History: No - HOME MEDS Home Medications: Home Meds Omeprazole Magnesium [Prilosec Otc] 40 mg PO DAILY 10/29/16 [History] Norgestimate-Ethinyl Estradiol [Trinessa Lo Tablet] 1 tab PO DAILY 10/03/17 [ History] L.acidoph,Paracasei, B.lactis [Probiotic] 1 tab PO DAILY 12/16/17 [History] Multivitamin [Multivitamins] 1 tab PO DAILY 12/16/17 [History] - CURRENT (IN HOUSE) MEDS Current Meds: Current Medications Lactated Ringer's (Ringers, Lactated) 1,000 mls @ 125 mls/hr IV ASDIRECTED CHAD Last Admin: 12/22/17 10:03 Dose: 125 mls/hr Sodium Chloride (Saline Flush) 10 ml FLUSH ASDIRECTED PRN PRN Reason: Keep Vein Open Sodium Chloride (Saline Flush) 2.5 ml FLUSH ASDIRECTED PRN PRN Reason: Keep Vein Open
[2017-12-22] MEDS ORDERED: Midazolam 1 MG/ML 2 ML SDV ONE (11:15)
[2017-12-22] MEDS ORDERED: Propofol 200 MG/20 ML SDV ONE ×2 (11:15→11:49)
[2017-12-22] MEDS ORDERED: Lidocaine 2% 5 ML SDV ONE (11:19)
[2017-12-22] MEDS ORDERED: Glycopyrrolate 0.2 MG/ML SDV ONE (11:33)
--- NOTE | 2017-12-22 12:05 | PCM.OPNOTE ---
- General Post-Op/Procedure Note Date of Surgery/Procedure: 12/22/17 Operative Procedure(s): EGD with biopsy Findings: Normal EGD Pre Op Diagnosis: Epigastric pain Post-Op Diagnosis: same Anesthesia Technique: MAC Primary Surgeon: Dina Osorio Condition: Good
--- NOTE | 2017-12-22 12:14 | PCM.POSTAN ---
POST ANESTHESIA ASSESSMENT - MENTAL STATUS Mental Status: Alert, Oriented - RESPIRATORY Respiratory Status: Respiratory Rate WNL, Airway Patent, O2 Saturation Stable - CARDIOVASCULAR CV Status: Pulse Rate WNL, Blood Pressure Stable - GASTROINTESTINAL GI Status: No Symptoms - POST OP HYDRATION Hydration Status: Adequate & Stable
[2017-12-22 15:23] VITALS: BP 106/69
--- NOTE | 2017-12-22 18:43 | OR ---
SURGEON: RAUL PULIDO MD DATE OF PROCEDURE: 12/22/2017 PREOPERATIVE DIAGNOSIS: Epigastric pain. POSTOPERATIVE DIAGNOSIS: Epigastric pain. PROCEDURE PERFORMED: Diagnostic esophagogastroduodenoscopy with biopsy. ANESTHESIA: MAC. INSTRUMENT USED: Olympus endoscope. EXTENT OF EXAM: To the second portion of duodenum. PREPARATION: Good. LIMITATIONS: None. INDICATION FOR EXAMINATION: The patient is a 37-year-old female with intermittent epigastric pain. She was found to have biliary dyskinesia on a recent HIDA scan. She has been taking omeprazole and feels like her symptoms have improved. A decision was made to proceed with a diagnostic EGD. I explained the procedure, expected perioperative course, and risks including bleeding, infection, or damage to surrounding structures including perforation. The patient verbalized understanding and wishes to proceed. PROCEDURE IN DETAIL: The patient was brought to the endoscopy suite and placed in a beach chair position. A time-out was completed verifying the patient's name, age, date of , allergies, and procedure to be performed. Monitored anesthesia care was induced and continuous oxygen was provided via nasal cannula. A bite block was placed in the patient's mouth and anesthesia was induced. After adequate sedation was achieved, a well lubricated endoscope was placed in the patient's mouth and advanced under direct visualization to the second portion of duodenum. This appeared normal and a photograph was taken. The scope was then fully withdrawn while examining the color, texture, anatomy, and integrity of the mucosa of the upper GI tract. The duodenal mucosa was free of pathology. The scope was brought into the stomach and a photograph taken of the GE junction as well as the pylorus. Both appeared normal. There was no evidence of gastritis or ulceration of the stomach lining. Biopsies were taken of the gastric antrum, body, and fundus and sent for histologic review and H. pylori testing. The scope was then brought into the distal esophagus. A photograph was taken of the Z-line. This appeared normal. The remainder of the esophageal mucosa was appeared normal. The scope was removed from the patient and the procedure was terminated. The patient was woken and taken to the PACU in stable condition. ENDOSCOPIC DIAGNOSIS: Epigastric pain. RECOMMENDATIONS: The patient and I discussed the findings in the postoperative care unit. The patient still does not desire surgery for her biliary dyskinesia. She feels like her symptoms are improved with omeprazole. I explained to the patient that she come back to clinic to discuss her pathology results as well as any other further options for treatment. DWAYNE MENDEZ /[id number]
== END 2017-12-22 12:40 | disposition home or self-care (01) ==
LOC: MW.SDS 09:24
PROVIDERS: ATTEND Surgery
DX: R10.13 Epigastric pain (principal); K82.8 Other specified diseases of gallbladder; K21.9 Gastro-esophageal reflux disease without esophagitis; Z79.899 Other long term (current) drug therapy; Z91.018 Allergy to other foods
CPT/HCPCS: 81025; 88305; 88312; J2250; J2704; J3490; J7120

== ENCOUNTER 2018-10-05 10:42 | Emergency (ER) | payer BC ==
[2018-10-05] MEDS ORDERED: Sodium Chloride 0.9% 10 ML Syringe FLUSH PRN (10:44)
[2018-10-05] MEDS ORDERED: Sodium Chloride 0.9% 2.5 ML Syringe FLUSH PRN (10:44)
[2018-10-05] MEDS ORDERED: Sodium Chloride 0.9% 1,000 ML IV ONE (10:45)
[2018-10-05] MEDS ORDERED: LORazepam 0.5 MG Tab PO ONE (10:49)
[2018-10-05 11:35] LABS: CHLORIDE,CL 104 mmol/L (98-107); SODIUM,NA 138 mmol/L (136-145)
[2018-10-05] MEDS ORDERED: Potassium Chloride 20 MEQ Tab.ER PO ONE (11:52)
--- NOTE | 2018-10-05 11:56 | EDM.PDOC ---
ED HPI GENERAL MEDICAL PROBLEM - General Chief Complaint: Cardiovascular Problem Stated Complaint: CHEST PAIN Time Seen by Provider: 10/05/18 10:44 Source of Information: Reports: Patient History Limitations: Reports: No Limitations - History of Present Illness INITIAL COMMENTS - FREE TEXT/NARRATIVE: History of present illness: []Patient has had intermittent palpitations for the last 5 days that makes her feel anxious and mildly short of breath. She denies any chest pain with palpitations. She is currently being worked up by Dr. Pizano and is scheduled for a Holter monitor when the next unit is available. Patient had multiple episodes this morning and became very anxious. Review of systems: As per history of present illness and below otherwise all systems reviewed and negative. Past medical history: As per history of present illness and as reviewed below otherwise noncontributory. Surgical history: As per history of present illness and as reviewed below otherwise noncontributory. Social history: No reported history of drug or alcohol abuse. Family history: As per history of present illness and as reviewed below otherwise noncontributory. Physical exam: General: Well developed, well nourished in NAD HEENT: Atraumatic, normocephalic, pupils reactive, negative for conjunctival pallor or scleral icterus, mucous membranes moist, throat clear, neck supple, nontender, trachea midline. Lungs: Clear to auscultation, breath sounds equal bilaterally, chest nontender. Heart: S1S2, regular, negative for clicks, rubs, or JVD. Abdomen: NABS, Soft, nondistended, nontender. Negative for masses or hepatosplenomegaly. Negative for costovertebral tenderness. Pelvis: Stable nontender. Genitourinary: Deferred. Rectal: Deferred. Extremities: Atraumatic, negative for cords or calf pain. Neurovascular unremarkable. Neuro: Awake, alert, oriented. Cranial nerves II through XII unremarkable. Cerebellum unremarkable. Motor and sensory unremarkable throughout. Exam nonfocal. Skin:warm and dry Diagnostics: EKG, CBC, chemistry, TSH, d-dimer, troponin, chest x-ray Therapeutics: IV hydration, Ativan ED Course: Improved Impression: PVCs Prescriptions: None Plan: Follow up with cardiology as scheduled. Definitive disposition and diagnosis as appropriate pending reevaluation and review of above. - Related Data Allergies Allergy/AdvReac Type Severity Reaction Status Date / Time avocado Allergy lips swell Verified 10/05/18 10:49 peach Allergy lips swell Verified 10/05/18 10:49 Home Meds: Home Meds . [No Known Home Meds] 10/05/18 [History] Past Medical History HEENT History: Reports: Other (See Below) Other HEENT History: wears glasses/contacts, has bottom permanent retainer Gastrointestinal History: Reports: GERD Genitourinary History: Reports: None [employer] History: Reports: - Past Surgical History Head Surgeries/Procedures: Reports: None HEENT Surgical History: Reports: Oral Surgery Other HEENT Surgeries/Procedures: wisdom teeth extraction GI Surgical History: Reports: EGD Female Surgical History: Reports: Section Social & Family History - Family History Family Medical History: Noncontributory - Tobacco Use Smoking Status *Q: Never Smoker - Caffeine Use Caffeine Use: Reports: Tea - Recreational Drug Use Recreational Drug Use: No ED ROS GENERAL - Review of Systems Review Of Systems: ROS reveals no pertinent complaints other than HPI. ED EXAM, GENERAL - Physical Exam Exam: See Below Course - Vital Signs Last Recorded V/S: Last Vital Signs Temp 98.4 F 10/05/18 10:45 Pulse 94 10/05/18 10:45 Resp 20 10/05/18 10:45 BP 146/93 H 10/05/18 10:45 Pulse Ox 95 10/05/18 10:45 - Orders/Labs/Meds Orders: Active Orders 24 hr Category Date Time Status Cardiac Monitoring [RC] . DIRECTED Care 10/05/18 10:44 Active EKG Documentation Completion [RC] STAT Care 10/05/18 10:44 Active Chest 1V Frontal [CR] Stat Exams 10/05/18 10:45 Ordered Potassium Chloride [Klor-Con M20] Med 10/05/18 11:52 Once 40 meq PO ONETIME ONE Sodium Chloride 0.9% [Saline Flush] Med 10/05/18 10:44 Active 10 ml FLUSH ASDIRECTED PRN Sodium Chloride 0.9% [Saline Flush] Med 10/05/18 10:44 Active 2.5 ml FLUSH ASDIRECTED PRN Saline Lock Insert [OM.PC] Stat Oth 10/05/18 10:44 Ordered Medication Orders Sodium Chloride (Saline Flush) 10 ml FLUSH ASDIRECTED PRN PRN Reason: Keep Vein Open Last Admin: 10/05/18 10:50 Dose: 10 ml Sodium Chloride (Saline Flush) 2.5 ml FLUSH ASDIRECTED PRN PRN Reason: Keep Vein Open Last Admin: 10/05/18 10:50 Dose: 2.5 ml Labs: Laboratory Tests 10/05/18 10/05/18 10/05/18 Range/Units 10:47 10:47 10:47 WBC 8.02 (4.0-11.0) K/uL RBC 4.85 (4.30-5.90) M/uL Hgb 14.6 (12.0-16.0) g/dL Hct 42.6 (36.0-46.0) % MCV 87.8 (80.0-98.0) fL MCH 30.1 (27.0-32.0) pg MCHC 34.3 (31.0-37.0) g/dL RDW Std Deviation 40.3 (28.0-62.0) fl RDW Coeff of Ebonie 13 (11.0-15.0) % Plt Count 224 (150-400) K/uL MPV 10.70 (7.40-12.00) fL Neut % (Auto) 67.2 (48.0-80.0) % Lymph % (Auto) 25.4 (16.0-40.0) % Nicholas % (Auto) 5.5 (0.0-15.0) % Eos % (Auto) 1.2 (0.0-7.0) % Baso % (Auto) 0.7 (0.0-1.5) % Neut # (Auto) 5.4 (1.4-5.7) K/uL Lymph # (Auto) 2.0 (0.6-2.4) K/uL Nicholas # (Auto) 0.4 (0.0-0.8) K/uL Eos # (Auto) 0.1 (0.0-0.7) K/uL Baso # (Auto) 0.1 (0.0-0.1) K/uL Nucleated RBC % 0.0 /100WBC Nucleated RBCs # 0 K/uL D-Dimer, Quantitative 0.24 (0.0-0.50) mg/L FEU Sodium 138 (136-145) mmol/L Potassium 3.3 L (3.5-5.1) mmol/L Chloride 104 (98-107) mmol/L Carbon Dioxide 24.0 (21.0-32.0) mmol/L BUN 10 (7.0-18.0) mg/dL Creatinine 0.7 (0.6-1.0) mg/dL Est Cr Clr Drug Dosing 104.01 mL/min Estimated GFR (MDRD) > 60.0 ml/min Glucose 95 (74-106) mg/dL Calcium 8.8 (8.5-10.1) mg/dL Total Bilirubin 0.4 (0.2-1.0) mg/dL AST 11 L (15-37) IU/L ALT 15 (14-63) IU/L Alkaline Phosphatase 52 (46-116) U/L Troponin I < 0.050 (0.000-0.056) ng/mL Total Protein 7.7 (6.4-8.2) g/dL Albumin 3.8 (3.4-5.0) g/dL Globulin 3.9 (2.6-4.0) g/dL Albumin/Globulin Ratio 1.0 (0.9-1.6) TSH 3rd Generation 1.15 (0.36-3.74) uIU/mL Urine HCG, Qual (NEGATIVE) 10/05/18 Range/Units 11:19 WBC (4.0-11.0) K/uL RBC (4.30-5.90) M/uL Hgb (12.0-16.0) g/dL Hct (36.0-46.0) % MCV (80.0-98.0) fL MCH (27.0-32.0) pg MCHC (31.0-37.0) g/dL RDW Std Deviation (28.0-62.0) fl RDW Coeff of Ebonie (11.0-15.0) % Plt Count (150-400) K/uL MPV (7.40-12.00) fL Neut % (Auto) (48.0-80.0) % Lymph % (Auto) (16.0-40.0) % Nicholas % (Auto) (0.0-15.0) % Eos % (Auto) (0.0-7.0) % Baso % (Auto) (0.0-1.5) % Neut # (Auto) (1.4-5.7) K/uL Lymph # (Auto) (0.6-2.4) K/uL Nicholas # (Auto) (0.0-0.8) K/uL Eos # (Auto) (0.0-0.7) K/uL Baso # (Auto) (0.0-0.1) K/uL Nucleated RBC % /100WBC Nucleated RBCs # K/uL D-Dimer, Quantitative (0.0-0.50) mg/L FEU Sodium (136-145) mmol/L Potassium (3.5-5.1) mmol/L Chloride (98-107) mmol/L Carbon Dioxide (21.0-32.0) mmol/L BUN (7.0-18.0) mg/dL Creatinine (0.6-1.0) mg/dL Est Cr Clr Drug Dosing mL/min Estimated GFR (MDRD) ml/min Glucose (74-106) mg/dL Calcium (8.5-10.1) mg/dL Total Bilirubin (0.2-1.0) mg/dL AST (15-37) IU/L ALT (14-63) IU/L Alkaline Phosphatase (46-116) U/L Troponin I (0.000-0.056) ng/mL Total Protein (6.4-8.2) g/dL Albumin (3.4-5.0) g/dL Globulin (2.6-4.0) g/dL Albumin/Globulin Ratio (0.9-1.6) TSH 3rd Generation (0.36-3.74) uIU/mL Urine HCG, Qual NEGATIVE (NEGATIVE) Meds: Medications Generic Name Dose Route Start Last Admin Trade Name Freq PRN Reason Stop Dose Admin Sodium Chloride 10 ml 10/05/18 10:44 10/05/18 10:50 Saline Flush FLUSH 10 ml ASDIRECTED PRN Administration Keep Vein Open Sodium Chloride 2.5 ml 10/05/18 10:44 10/05/18 10:50 Saline Flush FLUSH 2.5 ml ASDIRECTED PRN Administration Keep Vein Open Discontinued Medications Generic Name Dose Route Start Last Admin Trade Name Freq PRN Reason Stop Dose Admin Sodium Chloride 1,000 mls @ 999 mls/hr 10/05/18 10:45 10/05/18 10:50 Normal Saline IV 10/05/18 11:45 999 mls/hr .Bolus ONE Administration Lorazepam 0.5 mg 10/05/18 10:49 10/05/18 10:54 Ativan PO 10/05/18 10:50 0.5 mg ONETIME ONE Administration Departure - Departure Time of Disposition: 11:55 Disposition: Home, Self-Care 01 Condition: Good Clinical Impression: Premature ventricular contractions Referrals: PCP,Unknown [Primary Care Provider] - Additional Instructions: The following information is given to patients seen in the emergency department who are being discharged to home. This information is to outline your options for follow-up care. We provide all patients seen in our emergency department with a follow-up referral. The need for follow-up, as well as the timing and circumstances, are variable depending upon the specifics of your emergency department visit. If you don't have a primary care physician on staff, we will provide you with a referral. We always advise you to contact your personal physician following an emergency department visit to inform them of the circumstance of the visit and for follow-up with them and/or the need for any referrals to a consulting specialist. The emergency department will also refer you to a specialist when appropriate. This referral assures that you have the opportunity for follow-up care with a specialist. All of these measure are taken in an effort to provide you with optimal care, which includes your follow-up. Under all circumstances we always encourage you to contact your private physician who remains a resource for coordinating your care. When calling for follow-up care, please make the office aware that this follow-up is from your recent emergency room visit. If for any reason you are refused follow-up, please contact the [facility] Emergency Department at and asked to speak to the emergency department charge nurse. [facility] [address] [place] [phone] - My Orders Last 24 Hours: My Active Orders 10/05/18 10:44 Cardiac Monitoring [RC] . DIRECTED EKG Documentation Completion [RC] STAT Sodium Chloride 0.9% [Saline Flush] 10 ml FLUSH ASDIRECTED PRN Sodium Chloride 0.9% [Saline Flush] 2.5 ml FLUSH ASDIRECTED PRN Saline Lock Insert [OM.PC] Stat 10/05/18 10:45 Chest 1V Frontal [CR] Stat 10/05/18 11:52 Potassium Chloride [Klor-Con M20] 40 meq PO ONETIME ONE - Assessment/Plan Last 24 Hours: My Active Orders 10/05/18 10:44 Cardiac Monitoring [RC] . DIRECTED EKG Documentation Completion [RC] STAT Sodium Chloride 0.9% [Saline Flush] 10 ml FLUSH ASDIRECTED PRN Sodium Chloride 0.9% [Saline Flush] 2.5 ml FLUSH ASDIRECTED PRN Saline Lock Insert [OM.PC] Stat 10/05/18 10:45 Chest 1V Frontal [CR] Stat 10/05/18 11:52 Potassium Chloride [Klor-Con M20] 40 meq PO ONETIME ONE
--- NOTE | 2018-10-05 12:43 | CR ---
Indication: Pain, shortness of breath Technique: Chest 1 view Comparison: September 01, 2017 Findings/Impression: Cardiovascular and mediastinum: Heart size and vasculature are normal in caliber and appearance. Mediastinum is within normal limits. Lungs and pleural space: Lungs are clear. No sign of infiltrate or mass. No sign of pleural effusion. No pneumothorax. Bones and soft tissues: No significant findings. Dictated by Jimena Rosario MD @ Oct 05 2018 12:41PM Signed by Dr. Jimena Rosario @ Oct 05 2018 12:41PM
[2018-10-05 12:45] VITALS: BP 125/81
== END 2018-10-05 12:21 | disposition home or self-care (01) ==
LOC: MW.ED 10:42
DX: I49.3 Ventricular premature depolarization (principal); Z91.018 Allergy to other foods
CPT/HCPCS: 36415; 71045; 80053; 81025; 84443; 84484; 85025; 85379; 93005; 96360; 99285; A9270; J7040

== ENCOUNTER 2021-11-17 11:44 | Emergency (ER) | payer BC ==
[2021-11-17] MEDS: Sodium Chloride 0.9% 1,000 ML IV ONE (12:14)
[2021-11-17 12:49] LABS: BLOOD UREA NITROGEN,BUN 13 mg/dL (7.0-18.0); CHLORIDE,CL 102 mmol/L (98-107); GLUCOSE RANDOM 89 mg/dL (74-106); POTASSIUM,K 3.3 mmol/L (3.5-5.1); SODIUM,NA 139 mmol/L (136-145)
[2021-11-17 12:58] LABS: ESTIMATED GFR 113 mL/min (>60)
[2021-11-17] MEDS: Potassium Chloride 20 MEQ Tab.ER PO ONE (13:27)
[2021-11-17 13:29] VITALS: BP 116/73; PULSE 90
== END 2021-11-17 13:31 | disposition home or self-care (01) ==
LOC: MW.ED 11:44
DX: R00.2 Palpitations (principal); Z91.018 Allergy to other foods
CPT/HCPCS: 36415; 80053; 83735; 84443; 84484; 84703; 85025; 93005; 96360; 99285; A9270; J7030; 93010; 99284

== ENCOUNTER 2023-05-13 09:43 | Emergency (ER) | payer BC ==
[2023-05-13 10:14] VITALS: PULSE 87
[2023-05-13] MEDS ORDERED: Sodium Chloride 0.9% 10 ML Syringe FLUSH PRN (10:19)
[2023-05-13] MEDS ORDERED: Sodium Chloride 0.9% 2.5 ML Syringe FLUSH PRN (10:19)
[2023-05-13 10:43] LABS: BASOPHILS ABSOLUTE AUTO 0.08 K/uL (0.00-0.20); BASOPHILS PERCENT AUTO 0.8 % (0.0-1.0); EOSINOPHILS ABSOLUTE AUTO 0.06 K/uL (0.00-0.45); EOSINOPHILS PERCENT AUTO 0.6 % (0.0-6.0); HEMATOCRIT 42.9 % (37.0-47.0); HEMOGLOBIN 14.8 g/dL (12.0-16.0); IMMATURE GRAN ABSOLUTE AUTO 0.02 K/uL (0.00-0.05); IMMATURE GRAN PERCENT AUTO 0.2 % (0.0-0.4); LYMPHOCYTES ABSOLUTE AUTO 1.62 K/uL (1.00-4.80); LYMPHOCYTES PERCENT AUTO 16.2 % (24.0-44.0); MEAN CORPUSCULAR HGB CONC 34.5 g/dL (32.0-36.0); MEAN CORPUSCULAR VOLUME 86.8 fL (83.0-99.0); MEAN PLATELET VOLUME 9.7 fL (9.4-12.3); NEUTROPHILS ABSOLUTE AUTO 7.75 K/uL (1.80-7.70); NEUTROPHILS PERCENT AUTO 77.2 % (41.0-71.0); PLATELET COUNT,PLT 254 K/uL (150-400); RED BLOOD CELL COUNT 4.94 M/uL (4.10-5.30); WHITE BLOOD CELL COUNT,WBC 10.03 K/uL (3.9-11.3)
[2023-05-13 11:07] LABS: ALBUMIN 4.2 g/dL (3.4-5.0); BILIRUBIN TOTAL 0.7 mg/dL (0.2-1.0); CALCIUM 9.4 mg/dL (8.5-10.1); CARBON DIOXIDE,CO2 26.2 mmol/L (21.0-32.0); CREATININE 0.9 mg/dL (0.6-1.0); EST CRCL DRUG DOSING (CG) 77.79 mL/min; MAGNESIUM 1.9 mg/dL (1.8-2.4); PROTEIN TOTAL,TP 8.2 g/dL (6.4-8.2)
[2023-05-13 11:50] VITALS: BP 120/82
== END 2023-05-13 11:42 | disposition home or self-care (01) ==
LOC: MW.ED 09:43
DX: R42 Dizziness and giddiness (principal); R20.0 Anesthesia of skin; Z91.018 Allergy to other foods
CPT/HCPCS: 36415; 80053; 83735; 85025; 99284; J3490; 99282

== ENCOUNTER 2023-05-22 19:33 | Emergency (ER) | payer BC ==
[2023-05-22] MEDS ORDERED: Sodium Chloride 0.9% 2.5 ML Syringe FLUSH PRN (22:21)
[2023-05-22] MEDS ORDERED: Sodium Chloride 0.9% 10 ML Syringe FLUSH PRN (22:21)
[2023-05-22] MEDS ORDERED: Metoclopramide 10 MG/2 ML SDV IVPUSH ONE (22:21)
[2023-05-22] MEDS ORDERED: diphenhydrAMINE 50 MG/ML SDV IVPUSH ONE (22:21)
[2023-05-22] MEDS ORDERED: Sodium Chloride 0.9% 1,000 ML IV ONE (22:21)
[2023-05-22 22:46] LABS: BASOPHILS ABSOLUTE AUTO 0.03 K/uL (0.00-0.20); BASOPHILS PERCENT AUTO 0.5 % (0.0-1.0); EOSINOPHILS ABSOLUTE AUTO 0.11 K/uL (0.00-0.45); EOSINOPHILS PERCENT AUTO 1.8 % (0.0-6.0); HEMATOCRIT 39.2 % (37.0-47.0); HEMOGLOBIN 13.7 g/dL (12.0-16.0); IMMATURE GRAN ABSOLUTE AUTO 0.01 K/uL (0.00-0.05); IMMATURE GRAN PERCENT AUTO 0.2 % (0.0-0.4); LYMPHOCYTES PERCENT AUTO 19.4 % (24.0-44.0); MEAN CORPUSCULAR HEMOGLOBIN 30.2 pg (28.0-32.0); MEAN CORPUSCULAR HGB CONC 34.9 g/dL (32.0-36.0); MEAN CORPUSCULAR VOLUME 86.3 fL (83.0-99.0); MEAN PLATELET VOLUME 9.9 fL (9.4-12.3); MONOCYTES ABSOLUTE AUTO 0.46 K/uL (0.00-0.80); MONOCYTES PERCENT AUTO 7.4 % (0.0-8.0); NEUTROPHILS ABSOLUTE AUTO 4.39 K/uL (1.80-7.70); NEUTROPHILS PERCENT AUTO 70.7 % (41.0-71.0); PLATELET COUNT,PLT 230 K/uL (150-400); RED BLOOD CELL COUNT 4.54 M/uL (4.10-5.30)
[2023-05-22 23:10] LABS: A/G RATIO 0.9 (0.9-1.6); ALANINE AMINOTRANSFERASE,ALT 16 IU/L (14-63); ALBUMIN 3.5 g/dL (3.4-5.0); ALKALINE PHOSPHATASE 55 U/L (46-116); ASPARTATE AMNIOTRANSFERASE,AST 13 IU/L (15-37); BILIRUBIN TOTAL 0.4 mg/dL (0.2-1.0); BLOOD UREA NITROGEN,BUN 8 mg/dL (7.0-18.0); CARBON DIOXIDE,CO2 25.8 mmol/L (21.0-32.0); CHLORIDE,CL 102 mmol/L (98-107); CREATININE 0.8 mg/dL (0.6-1.0); EST CRCL DRUG DOSING (CG) 87.51 mL/min; GLUCOSE RANDOM 89 mg/dL (74-106); LIPASE 39 U/L (16-77); POTASSIUM,K 3.5 mmol/L (3.5-5.1); PROTEIN TOTAL,TP 7.3 g/dL (6.4-8.2); SODIUM,NA 139 mmol/L (136-145)
[2023-05-22 23:14] LABS: ESTIMATED GFR 95 mL/min (>60)
[2023-05-22 23:35] LABS: CORONAVIRUS COVID-19 NAA NEGATIVE (NEGATIVE); INFLUENZA A NAA NEGATIVE (NEGATIVE); INFLUENZA B NAA NEGATIVE (NEGATIVE)
[2023-05-23 00:37] VITALS: BP 102/68; PULSE 70
== END 2023-05-23 00:35 | disposition home or self-care (01) ==
LOC: MW.ED 19:33
DX: R42 Dizziness and giddiness (principal); R51.9 Headache, unspecified; Z91.048 Other nonmedicinal substance allergy status; Z91.018 Allergy to other foods
CPT/HCPCS: 0240U; 36415; 70450; 80053; 83690; 84484; 84703; 85025; 85379; 93005; 96374; 96375; 99284; J1200; J2765; J3490; J7030; 93010